=== PATIENT | male | born 1975 | race Caucasian/White ===

== ENCOUNTER → 2016-08-15 | Outpatient (CLI) | payer MEDICAID ==
[~2016-08-15] MED LIST: LORA-446 PO; REGADENOSON 0.4 MG/5 ML SYRINGE ONE; VERA120C2 PO
== END | disposition home or self-care (01) ==
LOC: CFH 15:17
PROVIDERS: ATTEND Internal Medicine Cardiovascular Disease
DX: I08.0 Rheumatic disorders of both mitral and aortic valves (principal)
CPT/HCPCS: 93306; J2785

== ENCOUNTER → 2016-08-16 | Outpatient (CLI) | payer MEDICAID ==
[~2016-08-16] MED LIST changes: -REGADENOSON 0.4 MG/5 ML SYRINGE ONE
== END | disposition home or self-care (01) ==
LOC: CFH 12:39
PROVIDERS: ATTEND Internal Medicine Cardiovascular Disease
DX: R07.9 Chest pain, unspecified (principal)
CPT/HCPCS: 78452; 93017; A9502

== ENCOUNTER 2017-04-18 17:27 | Emergency (ER) | payer MEDICAID ==
[~2017-04-18] VITALS: Ht 188 cm; Wt 121.0 kg
[2017-04-18 18:39] LABS: BASOPHILS # (AUTO) 0.04 x10^3/uL (0-0.1); BASOPHILS % (AUTO) 0 % (0-1); EOSINOPHILS # (AUTO) 0.21 x10^3/uL (0-0.4); EOSINOPHILS % (AUTO) 2 % (1-7); LYMPHOCYTES # (AUTO) 2.62 x10^3/uL (1-3.4); LYMPHOCYTES % (AUTO) 25 % (22-44); MD NO; MEAN CORPUSCULAR HEMOGLOBIN 29.9 pg (27.5-34.5); MEAN CORPUSCULAR HGB CONC 33.6 g/dL (33.2-36.2); MEAN CORPUSCULAR VOLUME 89.1 fL (81-97); MONOCYTES # (AUTO) 0.63 x10^3/uL (0.2-0.8); MONOCYTES % (AUTO) 6 % (2-9); NEUTROPHILS # (AUTO) 6.93 x10^3/uL (1.8-6.8); NEUTROPHILS % (AUTO) 67 % (42-75); PLATELET COUNT 233 x10^3/uL (130-400); RED BLOOD COUNT 5.69 x10^6/uL (4.38-5.82); RED CELL DISTRIBUTION WIDTH 12.9 % (9.4-14.8)
[2017-04-18 18:50] LABS: ALANINE AMINOTRANSFERASE 36 U/L (12-78); ALBUMIN 3.9 g/dL (3.4-5.0); ANION GAP 11 mmol/L (5-15); CALCIUM 8.8 mg/dL (8.5-10.1); CHLORIDE 106 mmol/L (98-107); CREATININE 0.88 mg/dL (0.7-1.3)
[2017-04-18 18:53] LABS: ALKALINE PHOSPHATASE 47 U/L (45-117); BILIRUBIN,TOTAL 0.3 mg/dL (0.2-1.0); TOTAL PROTEIN 7.8 g/dL (6.4-8.2)
[2017-04-18 20:29] LABS: CULTURE INDICATED? NO; MICROSCOPIC NOT IND
[2017-04-18 21:42] VITALS: BP 135/85
== END 2017-04-18 21:44 | disposition home or self-care (01) ==
LOC: ED 21:30
DX: K21.9 Gastro-esophageal reflux disease without esophagitis (principal); E78.5 Hyperlipidemia, unspecified; E11.9 Type 2 diabetes mellitus without complications; I49.1 Atrial premature depolarization; I47.1 Supraventricular tachycardia; F17.210 Nicotine dependence, cigarettes, uncomplicated; I49.3 Ventricular premature depolarization
CPT/HCPCS: 36415; 76700; 80053; 81003; 83690; 85025; 99285

== ENCOUNTER → 2017-05-14 | Outpatient (CLI) | payer MEDICAID ==
[~2017-05-14] MED LIST changes: +OMNIPAQUE 350 MG/ML, 100ML BOTTLE ONE
== END | disposition home or self-care (01) ==
LOC: CFH 07:36
PROVIDERS: ATTEND Internal Medicine
DX: R10.10 Upper abdominal pain, unspecified (principal); D73.89 Other diseases of spleen; G89.29 Other chronic pain
CPT/HCPCS: 74177; Q9967

== ENCOUNTER 2017-09-12 06:42 | Emergency (ER) | payer MEDICAID ==
[~2017-09-12] VITALS: Ht 188 cm; Wt 115.0 kg
[~2017-09-12 06:42] MED LIST changes: -OMNIPAQUE 350 MG/ML, 100ML BOTTLE ONE
[2017-09-12] MEDS ORDERED: SODIUM CHLORIDE 0.9% 1,000ML IVBOLUS ONE (07:00)
[2017-09-12] MEDS ORDERED: SODIUM CHLORIDE FLUSH 10ML SYR IVF ONE (07:00)
[2017-09-12 07:31] LABS: BASOPHILS # (AUTO) 0.04 x10^3/uL (0-0.1); BASOPHILS % (AUTO) 0 % (0-1); EOSINOPHILS # (AUTO) 0.02 x10^3/uL (0-0.4); EOSINOPHILS % (AUTO) 0 % (1-7); LYMPHOCYTES # (AUTO) 1.27 x10^3/uL (1-3.4); LYMPHOCYTES % (AUTO) 12 % (22-44); MD NO; MEAN CORPUSCULAR HEMOGLOBIN 30.1 pg (27.5-34.5); MEAN CORPUSCULAR HGB CONC 34.2 g/dL (33.2-36.2); MEAN CORPUSCULAR VOLUME 88.2 fL (81-97); MEAN PLATELET VOLUME 8.3 fL (7.4-10.4); MONOCYTES % (AUTO) 6 % (2-9); NEUTROPHILS # (AUTO) 9.06 x10^3/uL (1.8-6.8); NEUTROPHILS % (AUTO) 82 % (42-75); PLATELET COUNT 195 x10^3/uL (130-400); RED BLOOD COUNT 5.48 x10^6/uL (4.38-5.82); RED CELL DISTRIBUTION WIDTH 13.1 % (9.4-14.8)
[2017-09-12 07:44] LABS: ALBUMIN 3.6 g/dL (3.4-5.0); ANION GAP 8 mmol/L (5-15); CALCIUM 8.5 mg/dL (8.5-10.1); CHLORIDE 107 mmol/L (98-107); CREATININE 1.09 mg/dL (0.7-1.3)
[2017-09-12 07:48] LABS: TROPONIN I < 0.015 ng/mL (0.000-0.045)
[2017-09-12 07:56] LABS: HEMOGLOBIN A1C 6.5 % (4.2-6.3)
[2017-09-12] MEDS ORDERED: OMNIPAQUE 350 MG/ML, 150 ML BOTTLE ONE (08:37)
[2017-09-12 09:57] VITALS: BP 133/65
== END 2017-09-12 10:00 | disposition home or self-care (01) ==
LOC: ED 09:52
DX: R00.2 Palpitations (principal); E11.9 Type 2 diabetes mellitus without complications
CPT/HCPCS: 36415; 71045; 71275; 80048; 82040; 83036; 83880; 84484; 85025; 93005; 99285; J7030; Q9967

== ENCOUNTER 2018-10-28 19:26 | Emergency (ER) | payer MEDICAID ==
[~2018-10-28] VITALS: Ht 188 cm; Wt 109.5 kg
--- NOTE | 2018-10-28 19:40 | NUR ---
BIB [facility] FOR C/O RUQ ABD PAIN RADIATES TO MID BACK; SUDDEN ONSET AFTER EATING SPICY MEATBALLS. HAD GALBLADDER REMOVED ABOUT 3 MONTHS AGO. "THIS FEELS EVEN WORSE THAT WHEN I WOULD HAVE MY ATTACKS." C/O NAUSEA "RIGHT WHEN THE PAIN STARTED BUT NOT ANYMORE". NO VOMITING. PT. STATES "I TOOK SOME PEPTO BISMOL AND IT MADE THE PAIN 10 X WORSE." [facility] REPORTS PATIENT WAS SLEEPING ON THE GURNEY ON THE RIDE OVER TO ED. FSBS BY [facility]. PT. STATES "I AM ALERGIC TO EVERY PAIN MED AND ALL MUSCLE RELAXERS THE ONLY PAIN MED I CAN TAKE IS THE ONE THAT STARTS WITH A D." B/P AND SPO2 MONITORS PLACED. DR. MANJARREZ AT [facility] AT THIS TIME FOR [facility].
--- NOTE | 2018-10-28 19:53 | NUR ---
RECEIVED REPORT FROM LAZARO BARCLAY.
[2018-10-28 19:58] LABS: BASOPHILS # (AUTO) 0.04 x10^3/uL (0-0.1); BASOPHILS % (AUTO) 0 % (0-1); EOSINOPHILS # (AUTO) 0.27 x10^3/uL (0-0.4); EOSINOPHILS % (AUTO) 3 % (1-7); LYMPHOCYTES % (AUTO) 35 % (22-44); MD NO; MEAN CORPUSCULAR HEMOGLOBIN 30.5 pg (27.5-34.5); MEAN CORPUSCULAR HGB CONC 33.1 g/dL (33.2-36.2); MEAN CORPUSCULAR VOLUME 92.3 fL (81-97); MEAN PLATELET VOLUME 7.8 fL (7.4-10.4); MONOCYTES # (AUTO) 0.63 x10^3/uL (0.2-0.8); MONOCYTES % (AUTO) 6 % (2-9); NEUTROPHILS # (AUTO) 5.94 x10^3/uL (1.8-6.8); NEUTROPHILS % (AUTO) 56 % (42-75); PLATELET COUNT 222 x10^3/uL (130-400); RED BLOOD COUNT 5.51 x10^6/uL (4.38-5.82); RED CELL DISTRIBUTION WIDTH 13.1 % (9.4-14.8)
--- NOTE | 2018-10-28 20:06 | NUR ---
EKG DONE AND PRESENTED TO
[2018-10-28 20:10] LABS: ALANINE AMINOTRANSFERASE 30 U/L (12-78); ALBUMIN 3.7 g/dL (3.4-5.0); ANION GAP 8 mmol/L (5-15); CALCIUM 8.7 mg/dL (8.5-10.1); CHLORIDE 101 mmol/L (98-107); CREATININE 1.02 mg/dL (0.7-1.3)
[2018-10-28 20:11] LABS: ALKALINE PHOSPHATASE 43 U/L (45-117); BILIRUBIN,TOTAL 0.3 mg/dL (0.2-1.0); TOTAL PROTEIN 7.4 g/dL (6.4-8.2)
--- NOTE | 2018-10-28 21:40 | NUR ---
PT DISCHARGED WITH DISCHARGE INSTRUCTIONS AND FOLLOW UP INSTRUCTIONS. PT UP AMBULATORY AND STABLE ON FEET.
[2018-10-28 21:41] VITALS: BP 137/78
== END 2018-10-28 21:44 | disposition home or self-care (01) ==
LOC: ED 21:38
DX: R10.13 Epigastric pain (principal); K21.9 Gastro-esophageal reflux disease without esophagitis; E11.9 Type 2 diabetes mellitus without complications; E78.5 Hyperlipidemia, unspecified; Z90.49 Acquired absence of other specified parts of digestive tract
CPT/HCPCS: 36415; 74022; 80053; 83690; 85025; 93005; 99284

== ENCOUNTER → 2019-04-25 | Outpatient (CLI) | payer MEDICAID ==
[~2019-04-25] MED LIST changes: +OMNIPAQUE 350 MG/ML, 100ML BOTTLE ONE
== END | disposition home or self-care (01) ==
LOC: CFH 11:59
PROVIDERS: ATTEND Internal Medicine
DX: R10.10 Upper abdominal pain, unspecified (principal); K76.0 Fatty (change of) liver, not elsewhere classified; D73.89 Other diseases of spleen; Z90.49 Acquired absence of other specified parts of digestive tract
CPT/HCPCS: 74177; Q9967